=== PATIENT | male | born 1960 | race Caucasian/White ===

== ENCOUNTER → 2019-10-25 | Outpatient (CLI) | payer OTHER ==
[~2019-10-25] VITALS: Ht 180.3 cm; Wt 93.0 kg
[~2019-10-25] MED LIST: ASA81BEC PO; HYDROCODON-ACE1 EACH PO; NORTRIPTYLINE H25 M3 PO; OMEPRAZOLE40 MG PO; TIZANIDINE HCL4 MG PO
--- NOTE | ~2019-10-25 | HPC ---
[facility] [address] [place] [address] PAIN MANAGEMENT CONSULTATION Name: JAMIL WHITNEY Room #: REG TEETEE GarciaGasper#: [id number] Admission: 10/25/19 Attend Phys: Eber Mendes MD Discharge: Date of : 64 Report #: [id number] THIS REPORT FOR: cc: Jacob Hansen James L. DO Morgan, Richard L. MD ~ CC: Jacob Espinosa DATE OF SERVICE: 10/25/2019 CHIEF COMPLAINT: Radiating pain, left hip, thigh and calf with numbness and neuropathic symptoms. HISTORY OF PRESENT ILLNESS: The patient is a pleasant 59-year-old who is here for the first time in over 5 years. He has had persistent neuropathic-like symptoms in his left leg that date back nearly 8 years. I gave him a transforaminal epidural injection many years ago. He had a laminectomy in 2010. He was recovering pretty well from that laminectomy 9 years ago when about 7 days in he had a sudden twisting sensation and a sensation of pain into his left leg. He has now had some neuropathic-like symptoms in that left leg ever since. He describes it variably as numbness, aching, at times sharp. He has pain with dorsiflexion of his foot and occasionally his left foot would even swell with sympathetic like symptoms. This winter has been particularly bad. Pain is worse with standing and walking. He does not do a regular exercise program, but we discussed it today. MEDICATIONS: Omeprazole, aspirin, and ibuprofen. He just finished a steroid Dosepak a few weeks ago and saw good relief for a short time. ALLERGIES: None. PAST MEDICAL HISTORY: Positive for colon resection in 1991 for cancer with cure, tonsillectomy at age 12. He had laminectomy in 2010 as described above. He describes arthritis of his hands. 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 He denies use of tobacco, drinks alcohol a couple of times a week in a social setting. REVIEW OF SYSTEMS: Positive for occasional headaches and nocturia, numbness, tingling as described in the history of present illness. PHYSICAL EXAMINATION: GENERAL: This is a fit appearing 59-year-old gentleman. Alert and oriented. [address] [address] PAIN MANAGEMENT CONSULTATION Name: JAMIL WHITNEY Room #: REG [facility]#: [id number] Admission: 10/25/19 Attend Phys: Eber Mendes MD Discharge: Date of : 64 Report #: [id number] No signs of anxiety and depression. VITAL SIGNS: His blood pressure is 117/78, heart rate is 82, respirations 16. He independently moves from sitting to standing position. His gait is only mildly antalgic. He has a slight rotation of his left hip outward, but is minor. CHEST: Clear. CARDIAC: Rhythm is regular. MUSCULOSKELETAL: Examination of the spine reveals normal alignment. Minimal pain with forward flexion, some mild pain with back extension. Straight leg raising does reproduce pain that follows a fairly broad distribution L3 in the thigh and L4-L5 into the calf. He has some numbness sensations into his heel. I do not palpate edema, but the left ankle does appear to be slightly larger than the right. Sensation is normal. Deep tendon reflexes are trace at the ankle and knee bilaterally. MRI is reviewed. Central canal is really quite good with no central stenosis. There are Modic like end-plate changes seen at L4 and L5. There is neural foraminal narrowing on the left at L4-L5 and L3-L4. This is not severe. Does not appear to be contacting the nerve root, but is the only thing that might be consistent with the spine related radiculopathy. IMPRESSION: Left leg pain with a neuropathic-like description and radiating in a radicular pattern covering essentially L3-L4 where he has some neural foraminal stenosis. RECOMMENDATION: Left L4-L5 transforaminal epidural injection, which will spread cephalad into the L3-L4 neural foramen. After informed consent, he was taken to the fluoroscopic suite, he was placed prone, skin prepped with ChloraPrep. Skin anesthetized over the L4-L5 interspace. Using triplanar fluoroscopic views, I advanced needle into the neural foramen. A 1 mL of Omnipaque was injected. Good spread of dye observed into the neural foramen epidural space extending cephalad. It was then followed by 3 mL of 0.5% lidocaine mixed with 80 mg triamcinolone. He tolerated the procedure well. There were no complications. Follow up in 1-2 months for possible repeat injection depending on response. By: [id number] Eber Mendes MD /nt
[2019-10-25 13:05] VITALS: BP 117/78
--- NOTE | 2019-10-25 13:34 | NUR ---
Pain Clinic Assessment: 1. History of Osteoarthritis: HANDS History of Rheumatoid Arthritis: NO 2. Height: 5 ft. 11 in. 180.3 cm. Weight: 205.0 lb. oz. 92.988 kg. Patient's BMI: 28.6 3. Vital Signs: BP: 117/78 Pulse: 82 Resp: 16 Temp: 02 Sat: 97 ECG Mon: 4. Pain Intensity: 6 5. Fall Risk: Dizziness: N Needs help standing or walking: N Fallen in the last 3 months: N Fall risk comments: 6. Patient on Blood Thinner: None 7. History of Hypertension: N 8. Opioid Therapy greater than 6 weeks: N Opiate Contract Signed: 9. Risk Assessment Tool Provided: 0-LOW RISK 10. Functional Assessment Tool: 11. Recreational Drug Use: Never Drug Type: Tobacco Use: Never Smoker Tobacco Type: Amount or Packs/day: How Many Years: Alcohol Use: Yes Frequency: Weekly Quant: 2/WEEL
== END | disposition home or self-care (01) ==
LOC: PAIN 06:47
DX: M54.16 Radiculopathy, lumbar region (principal); M48.061 Spinal stenosis, lumbar region without neurogenic claudication; Z98.890 Other specified postprocedural states; Z79.899 Other long term (current) drug therapy; Z98.0 Intestinal bypass and anastomosis status